=== PATIENT | female | born 1960 ===

== ENCOUNTER 2020-11-14 13:40 | Emergency (ER) | payer OTHER ==
[2020-11-14 15:20] LABS: BASOPHIL 1.3 % (0-2); EOSINOPHIL 2.9 % (0-5); HCT 41.8 % (37.0-47.0); HGB 13.4 g/dl (12.5-16.0); MCH 31.2 pg (25.0-31.0); MCHC 32.1 g/dL (32.0-36.0); MCV 97.4 fL (78.0-100.0); MONOCYTE 9.9 % (0-12); MPV 9.3 fL (6.0-9.5); NEUTROPHIL 60.6 % (41-80); NRBC 0; PLT 277 K/uL (150-400); RBC 4.29 M/uL (4.20-5.40); RDW 13.2 % (11.5-14.0); WBC 6.9 K/uL (4.0-10.5)
[2020-11-14 15:37] LABS: INR 1.04 (0.9-1.2); PTT 27.5 SECONDS (24.4-34.7)
[2020-11-14 15:40] LABS: ALBUMIN 3.3 g/dL (3.4-5.0); BILIRUBIN - TOTAL 0.2 mg/dL (0.2-1.0); BUN/CREAT RATIO (CALC) 10.4 RATIO; CREATININE 1.25 mg/dL (0.51-0.95); GLOBULIN (CALCULATION) 3.7 g/dL; POTASSIUM 4.1 mmol/L (3.5-5.1)
[2020-11-14 16:06] LABS: IRON % SATURATION 28.8 %SAT (20-50)
[2020-11-14] MEDS ORDERED: ALDACTONE25 MG PO (16:46)
== END 2020-11-14 17:14 | disposition home or self-care (01) ==
LOC: FER 13:40
PROVIDERS: Emergency Medicine
DX: R07.89 Other chest pain (principal); M54.12 Radiculopathy, cervical region; R06.02 Shortness of breath
CPT/HCPCS: 36415; 71045; 72125; 80053; 83540; 83550; 84484; 85025; 85610; 85730; 93005